=== PATIENT | male | born 1930 ===

== ENCOUNTER 2017-02-27 10:47 | Inpatient (IN) ==
--- NOTE | 2017-02-27 12:27 | CT Report ---
CT head/brain wo con Indication: Fall. Laceration scalp. Comparison: CT head 11/07/2016. Technique: CT of the brain was performed without administration of intravenous contrast. The CT examination was performed using one or more of the following dose reduction techniques: Automatic exposure control, adjustment of the mA and kV according to patient size, use of acute or iterative reconstruction techniques. Findings: There is no evidence of acute intracranial hemorrhage, mass, or infarction. Ventricles appear within normal limits. Generalized atrophy and findings compatible with microvascular ischemia appears stable. The basal cisterns are patent. No significant abnormality is demonstrated to involve the posterior fossa or cerebellum. Orbits and globes demonstrate no evidence of significant pathology. The paranasal sinuses are clear. No significant abnormality is demonstrated to involve the mastoid air cells. The calvarium and overlying soft tissues demonstrate no evidence of acute pathology. Impression: 1. No CT evidence of acute intracranial pathology. 02/27/2017 12:24 PM PROCEDURE INTERPRETED AT [facility] DEPARTMENT OF RADIOLOGY Final Report Signed by: Dr. Shane Xiong
[2017-02-27 12:46] LABS: Basophils % 0.2 % (0.0-0.8); Eosinophils % 0.1 % (0.00-10.9); Hematocrit 39.5 VOL% (42.0-52.0); Hemoglobin 14.1 GM/DL (14.0-18.0); Immature Granulocytes Absolute 0.09 #; Lymphocytes # 2.6 10*3/uL (1.4-4.0); Lymphocytes % 28.1 % (21.2-54.2); Mean Corpuscular HGB Conc 35.7 GM/DL (32-36); Mean Corpuscular Hemoglobin 33 PG (27-34); Mean Platelet Volume 9.8 FL (9.6-12.0); Monocytes # 0.6 10*3/uL (0.11-0.8); Monocytes % 6.5 % (1.7-12.7); Neutrophils # 5.9 10*3/uL (1.4-7.4); Neutrophils % 64.1 % (38.7-73.9); Platelet Count 255 T/CUMM (130-400); Red Blood Count 4.34 MC/CUMM (3.8-5.5); Red Cell Distribution Width 11.6 % (9.3-17.3); White Blood Count 9.1 T/CUMM (4-12)
--- NOTE | 2017-02-27 13:00 | XRay Report ---
History: Cough. Syncope Date: 02/27/2017 Study: Chest x-ray PA and lateral Comparison exam: July 18, 2016 The cardiac silhouette is not enlarged. There is a moderate-sized hiatal hernia as before. The mediastinal contours are unchanged. The pulmonary vasculature is not engorged. The lungs are slightly hyperexpanded. There is no pleural effusion. There is mild platelike scar or subsegmental atelectasis in the lung bases. There is no acute infiltrate. There is osteopenia and mild to moderate thoracic spondylosis. Impression: The lungs are slightly hyperexpanded as can be seen with COPD. Scarring in the lung bases. No acute cardiopulmonary process is identified. Hiatal hernia as before PROCEDURE INTERPRETED AT [facility] DEPARTMENT OF RADIOLOGY Final Report Signed by: Dr. Diana Ivory
[2017-02-27 13:20] LABS: Hypochromasia Slight; Lymphocytes 26 % (20-55); Platelet Estimate Adequate; Segmented Neutrophils 72 % (50-85); Total Cells Counted 100
[2017-02-27 13:25] LABS: Blood Urea Nitrogen 37 MG/DL (7-18); CKMB % 4.1 %; Glucose 105 MG/DL (74-106); Osmolality,Calculated 259.5 MOS/KG (273-304); Potassium 5.2 MMOL/L (3.5-5.1); Sodium 125 MMOL/L (136-145); Troponin I Only < 0.015 NG/ML (0.00-0.045)
--- NOTE | 2017-02-27 14:26 | Emergency Department Note ---
Arrival - Arrival Chief Complaint: Fall Stated Complaint: dizzy, fell in hit head. open cut ED Nursing Triage Note: pt to triage via wc with c/o having a fall and hitting head onset 0945, pt states he takes medicine that makes him dizzy, pt is unsure if he had LOC or not. laceration noted to right side of head. wound cleaned and dsg placed in triage. pt is AAO x 3 Mode of Arrival: Wheelchair Source: Patient, Family Time Seen by Provider: 02/27/17 11:24 - History of Present Illness HPI Narrative: 86 y/o white male presents to the ER after a syncopal episode 1 hour prior to arrival. Patient states this morning he went for a jog and when he got home he sat down to read. After reading for a little while he stood up and walked down the piña. While walking patient became dizzy and blacked out hitting his head on a piece of furniture. Laceration present to posterior scalp. Patient denies chest pain, dyspnea, or headache. Past medical history significant for HTN. PCP: Dr. Monroe. Onset (ago): hour(s) (1) Consistency: constant Allergies/Adverse Reactions: Allergies Allergy/AdvReac Type Severity Reaction Status Date / Time No Known Allergies Allergy Verified 02/27/17 11:14 Home Medications: Home Medications Medication Instructions Recorded Confirmed Type Amlodipine Besylate [Amlodipine 5 mg PO DAILY 02/27/17 History Besylate] Lisinopril/Hydrochlorothiazide 1 each PO DAILY 02/27/17 History [Lisinopril-Hctz 10-12.5 mg Tab] Omeprazole [Omeprazole] 20 mg PO DAILY 02/27/17 History Tizanidine HCl [Tizanidine HCl] 2 mg PO Q6H PRN 02/27/17 History Review of System - Review of System 12 point system: reviewed and no additional remarkable complaints except as stated - Review of System Skin: Present: other (laceration to scalp ) Neurological: Present: other (syncope ) Medical,Surgical,& Family Hx - Medical History Cardio: History of: Hypertension Genitourinary: History of: Prostate Problems - Social History Smoking Status: Never smoker Frequency of Alcohol Use: None Type of Drug Use: None Exam Vital Signs: Vital Signs Temperature 97.8 F 02/27/17 11:21 Pulse Rate 54 L 02/27/17 14:06 Respiratory Rate 20 02/27/17 14:06 Blood Pressure 165/79 02/27/17 14:06 O2 Sat by Pulse Oximetry 98 02/27/17 14:06 - General General appearance: alert, in no apparent distress - ENT ENT exam: Present: normal exam, normal oropharynx, mucous membranes moist - Chest Chest inspection: Present: normal inspection - Respiratory Respiratory exam: Present: normal lung sounds bilaterally - Cardiovascular Cardiovascular exam: Present: regular rate, normal rhythm, normal heart sounds - Abdominal Exam Abdominal exam: Present: soft, normal bowel sounds. Absent: tenderness - Extremities Exam Extremities exam: Present: normal inspection, full ROM - Back Exam Back exam: Present: normal inspection. Absent: vertebral tenderness (no cervicle, throacic, or lumbar vertebral TTP ) - Neurological Exam Neurological exam: Present: alert, oriented X3, CN II-XII intact, normal gait - Psychiatric Psychiatric exam: Present: normal affect, normal mood - Skin Skin exam: Present: warm, dry, other (3 cm laceration to right posterior scalp; slow grade venous oozing. ) Course - Consultations Consultation #1: Hospitalist Time: 14:25 (Will admit to Hospitalist ) Procedures - Laceration Laceration 1 Site: scalp Side (If applicable): right Size (cm): 3 Description: linear Depth: simple, single layer Local Anesthetic: lidocaine 1%, with epi Amount of Anesthesia Used (mL): 2 Pre-repair: wound explored, irrigated extensively, deep structures intact Size: other (ab ) Number of sutures: 5 Technique: simple, interrupted Results - Labs CBC & BMP: 02/27/17 12:32 02/27/17 12:32 Lab Results: I have reviewed the patients labs - Diagnostic Findings Procedure: Chest x-ray: image reviewed by me, report reviewed by me (no acute abnormality ), CT: image reviewed by me, report reviewed by me (Head: no acute abnormality ) Disposition Clinical Impression: Syncope, Laceration, Hyponatremia, Hyperkalemia Case discussed with: patient Disposition: Disch To Home/Self Care Condition: Stable
--- NOTE | 2017-02-27 15:00 | EKG Report ---
Stationary ECG Study [facility] Test Date: 02/27/2017 12:54:15 PM Pat Name: VALDEZ YOUNGBLOOD Department: Room: Gender: M Sound Assistant: : [id number] Requested by: Marry Shepard Order Number: [id number] Reading MD: MINAL SANTANA Intervals [place] Rate: 50 P: 19 NH: 189 QRS: -52 QRSD: 83 T: -2 QT: 456 QTc: 428 Interpretive Statements SINUS BRADYCARDIA MODERATE VOLTAGE CRITERIA FOR LVH, CONSIDER NORMAL VARIANT INFERIOR MYOCARDIAL INFARCTION, OF INDETERMINATE AGE Electronically Signed On 03-03-17 18:26:42 CDT by MINAL SANTANA [email or web address]
--- NOTE | 2017-02-27 15:22 | Hospitalist History & Physical ---
<Maryann Wilkins - Last Filed: 02/27/17 16:44> Assessment and Plan (1) Syncope Status: Acute Assessment and plan: Admit as inpatient observation. Monitored bed. Serial cardiac enzymes. Carotid dopplers/echo. consult cardiology to evaluate. Current Visit: Yes (2) Hyperkalemia Status: Acute Assessment and plan: One time dose of Kayexalate. Recheck potassium in am. Current Visit: Yes (3) Hyponatremia Status: Acute Assessment and plan: Na 125. Will start patient on NS infusion at 75 ml/hr. Recheck BMP in am. Current Visit: Yes (4) Laceration Status: Acute Assessment and plan: Pt. was stapled in ED. Current Visit: Yes (5) Bradycardia Status: Acute Assessment and plan: Pt. will be monitored. Hold heart rate lowering agents. Some concern for possible tachybrady syndrome. Will monitor. Current Visit: Yes History of Present Illness Chief complaint: syncopal episode History of present illness: Mr. Qureshi is a 86 year old white male with a history of htn and enlarged prostate that presents to the ED for further evaluation after a syncopal episode and fall today. Pt's is present at the bedside and provides some of the history. Pt. states that he runs 3miles daily.After his run, he returned home and sat on the couch. While sitting down, he began to have some abdominal cramps. Pt. noted this was not unusual as he takes miralax daily for bowel movements. He got up from the couch, took two steps, and became dizzy. He continued down the piña to the bathroom, became increasingly dizzier and then "blacked out". Pt. reports feeling nauseous before he fell. He stated that when he fell, he didn't have an vision changes, tinnitus, chest pain, or shortness of breath. Pt. denies loss of consciousness but he couldnt remember how he struck his head. Pt. reports only seeing blood on the floor and wall and noticing scrapes to his skin. Pt. states that he has fallen frequently over the past several months. Pt. also reports issues with dizziness. He states that he has had changes made to blood pressure meds lately and that he is scheduled to see Dr. Montes in [place]. Pt also reports that while running he notices his heart climbs to 160 (per smart watch) and drops quickly to the 50s. After the incident today, patient reported to the ED where laceration was cleaned and ab were placed. A workup was completed in the ED and he was noted to be bradycardiac. BMP revealed NA of 125, K of 5.2, and elevated bun/creatinine. Pt' s case has been discussed with Dr. Sharma and REVA Kramer in fast track. Pt. will be admitted to the hospital for further eval. Pt. will be placed in inpatient observation overnight. Cardiology has been consulted to see. Home Medications Medication Instructions Recorded Confirmed Type Acetaminophen [Acetaminophen ER 650 mg PO BID 02/27/17 02/27/17 History Tab] Amlodipine Besylate [Amlodipine 5 mg PO BEDTIME 02/27/17 02/27/17 History Besylate] Folic Acid Tab 1 tablet PO DAILY 02/27/17 02/27/17 History Lisinopril/Hydrochlorothiazide 1 each PO DAILY 02/27/17 02/27/17 History [Lisinopril-Hctz 10-12.5 mg Tab] Multivitamin (Centrum) [Centrum 1 tablet PO DAILY 02/27/17 02/27/17 History Tab] Alma 3 Acid Ethyl Esters [Lovaza] 1 tablet PO DAILY 02/27/17 02/27/17 History Omeprazole [Omeprazole] 20 mg PO DAILY 02/27/17 02/27/17 History Polyethylene Glycol Powder 17 gm PO DAILY 02/27/17 02/27/17 History [Miralax] Tizanidine HCl [Tizanidine HCl] 2 mg PO BID 02/27/17 02/27/17 History Allergies Allergy/AdvReac Type Severity Reaction Status Date / Time No Known Allergies Allergy Verified 02/27/17 11:14 Medical,Surgical,& Family Hx - Medical History Cardio: History of: Hypertension Genitourinary: History of: Prostate Problems - Social History Smoking Status: Never smoker Frequency of Alcohol Use: None Type of Drug Use: None Marital Status: Lives With:: Spouse Functional capacity: independent ambulation - Constitutional Constitutional: Absent: chills, fever(s) - EENT Eyes: Present: loss of vision Ears: Present: decreased hearing. Absent: ear discharge Nose, mouth and throat: Absent: dysphagia, headache(s) - Cardiovascular Cardiovascular: Present: lightheadedness. Absent: chest pain at rest, dyspnea on exertion, edema, palpitations - Respiratory Respiratory: Absent: cough, dyspnea - Gastrointestinal Gastrointestinal: Absent: abdominal pain, nausea, vomiting - Genitourinary Genitourinary: Present: other (patient self caths 3 times a day) - Musculoskeletal Musculoskeletal: Absent: limited range of motion - Neurological Neurological: Present: dizziness, frequent falls. Absent: confusion, numbness - Psychiatric Psychiatric: Absent: anxiety, confusion - Hematologic/Lymphatic Hematologic/Lymphatic: Present: easy bleeding, easy bruising Exam - Constitutional Vitals: Period Temp Pulse Resp BP Sys/[place] Pulse Ox Last 24 Hr 97.8 F-97.8 F 51-55 18-20 129-165/79-83 98-100 General appearance: normal weight, no acute distress - Head Head exam: Present: normal inspection, normocephalic - Eye Eye exam: Present: EOMI Pupils: Present: GRANT - ENT ENT exam: Present: normal exam - Respiratory Respiratory exam: Present: clear to auscultation bilaterally. Absent: wheezes - Cardiovascular Cardiovascular exam: Present: bradycardia - GI/Abdominal GI/Abdominal exam: Present: normal bowel sounds, soft. Absent: tenderness - Extremities Exam Extremities exam: Present: normal capillary refill, full ROM. Absent: edema - Neurological Exam Neurological exam: Present: alert, oriented X3 - Psychiatric Psychiatric exam: Present: normal affect, normal mood - Skin Skin exam: Present: normal color, warm, dry Results - Labs CBC & BMP: 02/27/17 12:32 02/27/17 12:32 Lab Results: I have reviewed the past 24 hour labs <Hillary Sharma - Last Filed: 02/28/17 07:45> History of Present Illness History of present illness: Mr. Qureshi is a 86 year old male who presents with syncope. Patient was seen, examined and discussed with the [employer]. I agree with the current line of management. Exam - Constitutional Vitals: Period Temp Pulse Resp BP Sys/[place] Pulse Ox Last 24 Hr 97.1 F-97.8 F 51-67 15-24 128-191/75-93 94-100 Results - Labs CBC & BMP: 02/28/17 06:33 02/27/17 12:32
[2017-02-27] MEDS ORDERED: ACETAMINOPHEN 325 MG TABLET PO PRN (15:58)
[2017-02-27] MEDS ORDERED: SODIUM POLYSTYRENE SULFATE 15 GM/60 ML BOTTLE PO STA (15:58)
[2017-02-27] MEDS ORDERED: ONDANSETRON 4 MG/2 ML VIAL IV PRN (15:58)
[2017-02-27] MEDS: SODIUM CHLORIDE 0.9% 1,000 ML IV SCH (17:25)
--- NOTE | 2017-02-27 17:26 | Ultrasound Report ---
Exam:US carotid duplex BI Date:02/27/2017 3:58 PM Indication: Syncope Technique:Grayscale color flow analysis and spectral analysis imaging was performed with image stored and captured. Findings: Echogenic plaque is demonstrated within the right carotid artery bulb and proximal right cervical segment ICA. Antegrade flow is noted bilaterally within the vertebral arteries. Right Side Flow velocities centimeters per second Common carotid artery:81.0 Proximal ICA:147.1 Distal ICA:92.1 External carotid artery:101.3 Vertebral artery:61.6 ICA/CCA ratio:1.8 Left SIde Flow velocities centimeters per second Common carotid artery 79.3 Proximal ICA:51.8 Distal ICA:85.1 External carotid artery:49.5 Vertebral artery:68.0 ICA/CCA ratio:0.7 Impression: 1. 50-69% stenosis involving the right cervical segment ICA is estimated. Today studies were performed utilizing indirect NASCET criteria 02/27/2017 5:12 PM PROCEDURE INTERPRETED AT [facility] DEPARTMENT OF RADIOLOGY Final Report Signed by: Dr. Shane Xiong
[2017-02-27 17:47] LABS: Apearance,Urine CLEAR (Clear); Bilirubin,Urine Negative (Negative); Blood, Urine Negative (Negative); Glucose,Urine (UA) Negative (Negative); Ketones,Urine 5 mg/dL (Negative); Nitrite,Urine Negative (Negative); Protein,Urine Negative; RBC,Urine 1 /HPF (0-4); Urine Color Yellow (Yellow); Urine Specific Gravity 1.008 (1.001-1.035); Urine Urobilinogen < 2.0 EU/DL (0.2-1.0); WBC,Urine 3 /HPF (0-6)
[2017-02-27 19:22] LABS: CKMB % 3.9 %; Troponin I Only < 0.015 NG/ML (0.00-0.045)
[2017-02-28 07:15] LABS: Basophils % 0.3 % (0.0-0.8); Eosinophils # 0.1 10*3/uL (0.0-0.87); Eosinophils % 0.7 % (0.00-10.9); Hematocrit 34.7 VOL% (42.0-52.0); Hemoglobin 12.5 GM/DL (14.0-18.0); Immature Granulocytes Absolute 0.07 #; Lymphocytes # 2.5 10*3/uL (1.4-4.0); Lymphocytes % 37.1 % (21.2-54.2); Mean Corpuscular Hemoglobin 33 PG (27-34); Mean Corpuscular Volume 90.4 FL (87-102); Monocytes # 0.6 10*3/uL (0.11-0.8); Monocytes % 8.5 % (1.7-12.7); Neutrophils # 3.6 10*3/uL (1.4-7.4); Neutrophils % 52.4 % (38.7-73.9); Platelet Count 208 T/CUMM (130-400); Red Blood Count 3.84 MC/CUMM (3.8-5.5); Red Cell Distribution Width 11.6 % (9.3-17.3); White Blood Count 6.8 T/CUMM (4-12)
[2017-02-28 07:48] LABS: Free T4 (Free Thyroxine) 1.22 NG/DL (0.76-1.46); Troponin I Only < 0.015 NG/ML (0.00-0.045)
[2017-02-28 07:58] LABS: Calcium 8.6 MG/DL (8.5-10.1); Magnesium 1.9 MG/DL (1.8-2.4); Osmolality,Calculated 269.5 MOS/KG (273-304); Risk Ratio 2.07; Thyroid Stimulating Hormone 1.11 uIU/ml (0.358-3.74)
[2017-02-28 08:04] LABS: Band Neutrophils 1 % (0-10); Eosinophils 1 % (0-10); Hypochromasia 1+; Lymphocytes 30 % (20-55); Segmented Neutrophils 57 % (50-85); Total Cells Counted 100
[2017-02-28 08:05] LABS: Platelet Estimate Normal
[2017-02-28] MEDS: PANTOPRAZOLE 40 MG TABLET PO SCH (08:12)
[2017-02-28] MEDS: amLODIPine 5 MG TABLET PO SCH (10:47)
[2017-02-28] MEDS: SODIUM CHLORIDE 0.9% 1,000 ML IV SCH (10:47)
[2017-02-28] MEDS: ASPIRIN EC 81 MG TABLET PO SCH (10:47)
--- NOTE | 2017-02-28 14:13 | Hospitalist Progress Note ---
Assessment and Plan (1) Syncope Status: Acute Assessment and plan: resulting to a fall.EKG showed sinus bradycardia with heart rate of 50. CT of the head showed no evidence of acute intracranial pathology. Chest x-ray identified no acute cardiopulmonary process. Carotid Doppler showed 50-69% stenosis involving the right internal carotid artery. Plan Follow [facility]ho Follow cardiology and vascular's consults Current Visit: Yes (2) Laceration Status: Acute Assessment and plan: of the right scalp due to a fall. Pt. was stapled in ED. Current Visit: Yes (3) Hyponatremia Status: Acute Assessment and plan: Slowly improving on IVF Current Visit: Yes (4) Hyperkalemia Status: Acute Assessment and plan: resolved Current Visit: Yes (5) Acute renal insufficiency Status: Acute Assessment and plan: Improving with IVF Current Visit: Yes (6) Bradycardia Status: Acute Assessment and plan: cardiology is evaluating. TSH is normal Current Visit: Yes (7) Carotid artery disease Status: Acute Assessment and plan: Carotid doppler showed 50-69% stenosis involving the right cervical segment ICA is estimated Plan CT angio of head and neck Vascular to see Continue with ASA Current Visit: Yes Hospitalist: Subjective Interval history: Patient was sitting up on a chair. He states he feels pretty good.Carotid doppler showed 50-69% stenosis involving the right cervical segment ICA is estimated.Patient has had a CT angiogram of head and neck today. We are awaiting Vascular consult. Exam - Constitutional Vitals: Period Temp Pulse Resp BP Sys/[place] Pulse Ox Last 24 Hr 97.1 F-97.9 F 52-67 14-24 128-191/75-93 94-99 General appearance: no acute distress, other (laceration and bruises on the right scalp, knee) - Respiratory Respiratory exam: Present: clear to auscultation bilaterally - Cardiovascular Cardiovascular exam: Present: regular rate and rhythm - GI/Abdominal GI/Abdominal exam: Present: normal bowel sounds - Extremities Exam Extremities exam: Present: normal inspection - Neurological Exam Neurological exam: Present: alert, oriented X3 Results - Labs CBC & BMP: 02/28/17 06:33 02/28/17 06:33 Lab Results: I have reviewed the past 24 hour labs
--- NOTE | 2017-02-28 14:20 | ECHO Report ---
Fredy Qureshi Exam Date: 02/28/2017 08:52 Referring Physician: Technologist: Mar Talamantes RDCS Age: 86 Ht (in): 69 Wt (lb): 135 Gender: M Exam Location: [facility] Echo Indications: Syncope and collapse, Dizziness and giddiness, Essential (primary) hypertension, Bradycardia, unspecified, Hyperkalemia, Hyponatremia, Frequent falls BP: 167 / 87 HR: 56 Rhythm: Sinus Technical Quality: Good IMPRESSIONS Normal left ventricular cavity size. Normal left ventricular wall thickness. Left ventricular ejection fraction is estimated at 55 %. The right ventricle is normal in size and function. The right atrium is normal in size. The left atrium is normal in size. Mildly thickened mitral valve. Mild mitral valve regurgitation. Aortic valve sclerosis without stenosis or regurgitation. Morphologically normal tricuspid valve. Trace to mild tricuspid valve regurgitation. Tricuspid regurgitation velocities suggest a PAP of 42 mmHg. Morphologically normal pulmonic valve. Mild pulmonary valve regurgitation. Normal pericardium without effusion. Normal ascending aorta dimension. MEASUREMENTS (Male / Female) Normal Values 2D ECHO LV Diastolic Diameter PLAX 5.2 cm 4.2 - 5.9 / 3.9 - 5.3 cm LV Systolic Diameter PLAX 2.9 cm LV Fractional Shortening PLAX 44.7 % IVS Diastolic Thickness 0.9 cm 0.6 - 1.0 / 0.6 - 0.9 cm LVPW Diastolic Thickness 0.9 cm 0.6 - 1.0 / 0.6 - 0.9 cm RV Internal Dim ED PLAX 3.5 cm Aortic Root Diameter 3.7 cm LA Systolic Diameter LX 3.8 cm 3.0 - 4.0 / 2.7 - 3.8 cm DOPPLER TR Peak Velocity 284.0 cm/s TR Peak Gradient 32.3 mmHg FINDINGS Left Ventricle Normal left ventricular cavity size. Normal left ventricular wall thickness. Left ventricular ejection fraction is estimated at 55 %. Right Ventricle The right ventricle is normal in size and function. Right Atrium The right atrium is normal in size. Left Atrium The left atrium is normal in size. Mitral Valve Mildly thickened mitral valve. Mild mitral valve regurgitation. Aortic Valve Aortic valve sclerosis without stenosis or regurgitation. Tricuspid Valve Morphologically normal tricuspid valve. Trace to mild tricuspid valve regurgitation. Tricuspid regurgitation velocities suggest a PAP of 42 mmHg. Pulmonic Valve Morphologically normal pulmonic valve. Mild pulmonary valve regurgitation. Pericardium Normal pericardium without effusion. Aorta Normal ascending aorta dimension. Dharmesh Montes MD (Electronically Signed) Final Date: 28 February 2017 14:19
--- NOTE | 2017-02-28 14:26 | CT Report ---
CT angio neck, CT angio head Indication: Carotid stenosis. CT ANGIOGRAM CAROTID ARTERIES DLP: 151 mGy*cm. One or more of the following dose reduction techniques was used: Automated exposure control, adjustment of the mA and/or kV according the patient size, or use of iterative reconstruction techniques. Technique: Axial thin cuts CT images were obtained from the aortic arch through the skull base during the arterial phase of contrast injection. 3-D vascular MIPs reconstructions and multiplanar reformats were evaluated. Omnipaque 350, 80 cc given. Comparison: None. Findings: Severity of stenosis based on NASCET criteria. Reference downstream ICA diameters are 6.1 mm on the right and 5.60 m on the left. Complex calcified atheromatous disease is present at both carotid bifurcations. On the right, the carotid lumen is narrowed to a diameter of 2.8 mm, which calculates to 55% diameter stenosis. On the left, the plaque present does not cause measurable stenosis of the left ICA origin. Both common carotid arteries are widely patent. Vertebral arteries are bilaterally patent and the right side is slightly dominant of the left. Calcified atheromatous disease, elongation and tortuosity thoracic aorta noted. No aneurysm or dissection shown. Right vessel origins are normal anatomic configuration without ostial stenosis. No superior mediastinal or cervical chain lymphadenopathy identified. The epiglottis is thin and midline. Vocal cords are symmetric. Airways widely patent. The trachea at the thoracic inlet has a "saber-sheath" appearance. Pulmonary apices are clear. Degenerative changes cervicothoracic spine noted. Visualized sinuses are clear. Left mastoid air cells are not aerated. Impression: 1. 55% diameter stenosis right ICA origin secondary to heterogeneous calcified plaque deposition. No measurable stenosis on the left despite the presence of plaque. 2. Widely patent bilateral vertebral arteries. 3. "Saber-sheath" appearing trachea at thoracic inlet. No compressing mass identified. CT ANGIOGRAM [place] DLP: 1934 mGy*cm. One or more of the following dose reduction techniques was used: Automated exposure control, adjustment of the mA and/or kV according the patient size, or use of iterative reconstruction techniques. Technique: Axial thin cut CT images were obtained from the skull base to the vertex during arterial phase of contrast injection. 3-D vascular MIPs reconstructions and multiplanar reformats were evaluated. Omnipaque 350, 80 cc given. Comparison: None. Findings: Calcified atheromatous disease of both distal internal carotid arteries noted. No aneurysmal change or critical stenosis identified on either side. MCA and MEENA vascular territories bilaterally symmetric and appear grossly unremarkable. Both vertebral arteries terminate in the basilar system. Basilar artery is normal in size without stenosis. No intracranial aneurysmal disease shown. Dural venous drainage system and deep cerebral veins are widely patent. Impression: 1. Calcified atheromatous disease of both ICA termini. No critical stenosis identified. 2. No intracranial aneurysmal disease. PROCEDURE INTERPRETED AT [facility] DEPARTMENT OF RADIOLOGY Final Report Signed by: Olvin Geronimo M.D.
--- NOTE | 2017-02-28 14:55 | Vascular Surgery Consult Note ---
History of Present Illness Chief complaint: carotid stenosis History of present illness: Mr. Qureshi is a 86 year old male Estimate there is a remarkably healthy-appearing 86-year-old man who was admitted with a syncopal episode resulting in a fall and minor scalp laceration. During his evaluation carotid ultrasound has been done and suggested modest stenosis of the right internal carotid artery noted on the left and a CT angiogram is now been done. I reviewed it has has a radiologist and he has a moderate stenosis with a densely calcified plaque at the right carotid bifurcation and no significant stenosis of the left carotid bifurcation. He very specifically denies any history suggesting lateralizing TIAs or amaurosis. At this point time Mr. 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 Reasonable antiplatelet therapy would be appropriate for him and routine follow-up with ultrasound would also be a reasonable approach but at age 86 and active it is unlikely we will see any significant changes in the near future. Home Medications Medication Instructions Recorded Confirmed Type Acetaminophen [Acetaminophen ER 650 mg PO BID 02/27/17 02/27/17 History Tab] Amlodipine Besylate [Amlodipine 5 mg PO BEDTIME 02/27/17 02/27/17 History Besylate] Folic Acid Tab 1 tablet PO DAILY 02/27/17 02/27/17 History Lisinopril/Hydrochlorothiazide 1 each PO DAILY 02/27/17 02/27/17 History [Lisinopril-Hctz 10-12.5 mg Tab] Multivitamin (Centrum) [Centrum 1 tablet PO DAILY 02/27/17 02/27/17 History Tab] [place] 3 Acid Ethyl Esters [Lovaza] 1 tablet PO DAILY 02/27/17 02/27/17 History Omeprazole [Omeprazole] 20 mg PO DAILY 02/27/17 02/27/17 History Polyethylene Glycol Powder 17 gm PO DAILY 02/27/17 02/27/17 History [Miralax] Tizanidine HCl [Tizanidine HCl] 2 mg PO BID 02/27/17 02/27/17 History Allergies Allergy/AdvReac Type Severity Reaction Status Date / Time No Known Allergies Allergy Verified 02/27/17 11:14 Medical,Surgical,& Family Hx - Medical History Cardio: History of: Hypertension HEENT: History of: Ear Problem (hearing aids) Genitourinary: History of: Bladder Problem (bal[place]), Prostate Problems Gastrointestinal: History of: GERD Musculoskeletal: History of: Back/Neck Problems - Social History Smoking Status: Never smoker Frequency of Alcohol Use: None Type of Drug Use: None Exam - Constitutional Vitals: Period Temp Pulse Resp BP Sys/[place] Pulse Ox Last 24 Hr 97.1 F-97.9 F 52-67 14-24 128-191/75-93 94-99 Results - Labs CBC & BMP: 02/28/17 06:33 02/28/17 06:33
[2017-03-01] MEDS: SODIUM CHLORIDE 0.9% 1,000 ML IV SCH ×2 (06:53→09:16)
[2017-03-01] MEDS: PANTOPRAZOLE 40 MG TABLET PO SCH (08:21)
[2017-03-01] MEDS: amLODIPine 5 MG TABLET PO SCH (08:21)
[2017-03-01] MEDS: ASPIRIN EC 81 MG TABLET PO SCH (08:21)
--- NOTE | 2017-03-01 08:22 | Cardiology Consult Note ---
Gume Purdy April RN, am scribing for, and in the presence of, Dharmesh Montes MD 08:22. Assessment and Plan - Time spent with patient Time spent with patient: Greater than 30 minutes (Due to assessment, planning, documentation, medication review) (1) Bradycardia Status: Acute Current Visit: Yes (2) Hyperkalemia Status: Acute Assessment and plan: He was given fluids last night and in today, this has improved. Current Visit: Yes (3) Hyponatremia Status: Acute Assessment and plan: He was given fluids last night and today, this is improved. Current Visit: Yes (4) Laceration Status: Acute Assessment and plan: This was stapled in the emergency department. Current Visit: Yes (5) Syncope Status: Acute Current Visit: Yes History of Present Illness - Data of Consult Patient: new to practice Consult date: 02/27/17 Requesting Physician: Hillary Sharma Primary care physician: Vidhi Monroe - Consult Narrative Reason for consult: Syncope History of present illness: Clinical Laboratory Aide: New to Dr. Montes Mr. 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 He denies ever having had a heart catheterization done. He states his primary doctor has ordered stress testing in the past (greater than 10 years) and as far as he knows this is all been negative. Medical history includes hypertension, prostate problems, arthritis, and bladder cancer. Surgical history includes bilateral cataracts, left foot, tonsillectomy, and bladder surgery. He does not currently smoke, states he quit about 45 years ago. Mr. Qureshi states he is very active, jogging 3 miles nearly every day. He was in his normal state of health until yesterday morning. After he returned from jogging he sat down to eat and felt fine. Upon standing he felt fine, walk down the piña about 20 feet and suddenly got nauseous and dizzy and fell. He thinks he was blacked out for a few seconds. He denies any vision changes, chest pain, shortness of breath with this episode. He had a laceration of the right side of his head and scrapes to his right forearm, right knee, and right pittman. Laceration of the head was stapled in the emergency department. EKG showed sinus bradycardia with heart rate of 50. CT of the head showed no evidence of acute intracranial pathology. Chest x-ray identified no acute cardiopulmonary process. Carotid Doppler showed 50-69% stenosis involving the right internal carotid artery. Dr. Dial has been consulted regarding this. His amlodipine has been continued, but his lisinopril HCTZ is on hold at this time. Blood pressure this morning is elevated at 175/84. On admission his sodium was low at 125, potassium elevated at 5.2, and creatinine elevated at 1.4. He has been given fluids and these numbers have improved. This morning sodium is 132, potassium is 4.0, and creatinine is 1.30. Troponin has been negative 3. CK-MB was elevated at 6.5 on admission, this has trended down and this morning it is within normal range. He does report he has had several falls recently, but none of them were associated with syncope or dizziness. Of note he reports he was traveling several weeks ago and did have significant swelling of his lower extremities. This improved after returning home. An echocardiogram has been ordered today. He denies any chest pain, shortness of breath, or dizziness since admission. He denies any further episodes of syncope or near syncope. This patient presents with what sounds like an episode of orthostasis after fairly intense physical exertion and having taken his blood pressure medications. He is hyponatremic and I think a reasonable approach would be to stop his HCTZ which we will do today. He is not having any symptoms that would suggest coronary insufficiency and his resting heart rate is in the 50s related to conditioning. I agree with carotid evaluation is planned and we will follow. I have discussed in detail the particulars of this case and I have examined the patient and reviewed the patient's chart both current and old. I was directly involved in the patient's evaluation and management and I completely agree with Nia Dunaway RN regarding this patient's evaluation and treatment plan. CC: Hillary Sharma MD - Home Medications and Allergies Home Medications: Home Medications Medication Instructions Recorded Confirmed Type Acetaminophen [Acetaminophen ER 650 mg PO BID 02/27/17 02/27/17 History Tab] Amlodipine Besylate [Amlodipine 5 mg PO BEDTIME 02/27/17 02/27/17 History Besylate] Folic Acid Tab 1 tablet PO DAILY 02/27/17 02/27/17 History Lisinopril/Hydrochlorothiazide 1 each PO DAILY 02/27/17 02/27/17 History [Lisinopril-Hctz 10-12.5 mg Tab] Multivitamin (Centrum) [Centrum 1 tablet PO DAILY 02/27/17 02/27/17 History Tab] [place] 3 Acid Ethyl Esters [Lovaza] 1 tablet PO DAILY 02/27/17 02/27/17 History Omeprazole [Omeprazole] 20 mg PO DAILY 02/27/17 02/27/17 History Polyethylene Glycol Powder 17 gm PO DAILY 02/27/17 02/27/17 History [Miralax] Tizanidine HCl [Tizanidine HCl] 2 mg PO BID 02/27/17 02/27/17 History Allergies/Adverse Reactions: Allergies Allergy/AdvReac Type Severity Reaction Status Date / Time No Known Allergies Allergy Verified 02/27/17 11:14 - Constitutional Constitutional: Present: as per HPI - EENT Eyes: Present: requires corrective lense. Absent: blurry vision Ears: Present: decreased hearing. Absent: ear pain, tinnitus Nose, mouth and throat: Present: neck pain, sore throat. Absent: dysphagia, epistaxis, headache(s), hoarseness - Cardiovascular Cardiovascular: Present: lightheadedness. Absent: chest pain at rest, chest pain with activity, diaphoresis, dyspnea, dyspnea on exertion, edema, radiating jaw, neck or arm pain, orthopnea, palpitations - Respiratory Respiratory: Present: cough. Absent: dyspnea, hemoptysis, dyspnea on exertion, wheezing - Gastrointestinal Gastrointestinal: Present: constipation, nausea. Absent: abdominal pain, diarrhea, hematemesis, hematochezia, melena, vomiting - Genitourinary Genitourinary: Present: difficulty urinating. Absent: dysuria, hematuria - Musculoskeletal Musculoskeletal: Present: back pain, limited range of motion, muscle weakness - Neurological Neurological: Present: dizziness, frequent falls, syncope. Absent: confusion, headache(s) - Psychiatric Psychiatric: Absent: anxiety, depression - Endocrine Endocrine: Absent: fatigue - Hematologic/Lymphatic Hematologic/Lymphatic: Present: easy bruising. Absent: easy bleeding Medical,Surgical,& Family Hx - Medical History Cardio: History of: Hypertension HEENT: History of: Ear Problem (hearing aids) Genitourinary: History of: Bladder Problem ([place]), Prostate Problems Gastrointestinal: History of: GERD Musculoskeletal: History of: Back/Neck Problems - Surgical History HEENT Surgeries: Surgical HX of: Eye Surgery (Bilateral cataracts), Tonsilectomy & Adenoidectomy Orthopedic Surgeries: Surgical HX of;: Orthopedic Surgery (Left foot) Additional Surgical History: Bladder surgery - Social History Smoking Status: Former smoker (Quit 45 years ago) Have you smoked in the last 12 months: No Frequency of Alcohol Use: Frequently Type of Drug Use: None Marital Status: Lives With:: Spouse Functional capacity: independent ambulation Physical Examination Vital Signs Temp Pulse Resp BP Pulse Ox 97.8 F 51 L 18 129/82 99 02/27/17 11:04 02/27/17 11:04 02/27/17 11:04 02/27/17 11:04 02/27/17 11:04 General: Present: Appears Well, No Apparent Distress HEENT: Present: PERRL, Mucus Membranes Moist Neck: Present: Supple Neck, Midline Trachea, No Bruit Cardiac: Present: Reg Rate and Rhythm, No Murmur, Bradycardia Lungs: Present: Normal Breath Sounds, No Wheeze, Rales, Rhonchi Neuro: Absent: Resting Tremor, Essential Tremor Abdomen: Present: Soft, Active Bowel Sounds, Non-Tender. Absent: Distended Skin: Present: Other (Laceration to his head, scrapes to his right forearm, right knee, and right she). Absent: Rash Musculoskeletal: Present: Decreased Range of Motion, Pain in Joint Extremities: Present: No Edema, Normal Upper Extr. Pulses, Normal Lower Extr. Pulses Result/EKG - Labs CBC & BMP: 02/28/17 06:33 02/28/17 06:33 Lab Results: I have reviewed the past 24 hour labs Labs: Laboratory Results - last 24 hr 02/27/17 02/27/17 02/27/17 12:32 12:32 18:46 WBC 9.1 RBC 4.34 Hgb 14.1 Hct 39.5 L MCV 91.0 MCH 33 MCHC 35.7 RDW 11.6 Plt Count 255 MPV 9.8 Neut % (Auto) 64.1 Lymph % (Auto) 28.1 [place] % (Auto) 6.5 Eos % (Auto) 0.1 Baso % (Auto) 0.2 Neut # (Auto) 5.9 Lymph # (Auto) 2.6 [place] # (Auto) 0.6 Eos # (Auto) 0.0 Baso # (Auto) 0.0 Total Counted 100 Immature Gran % 1.0 Nucleated RBC % 0.0 Immature Gran # 0.09 Segmented Neutrophils 72 Band Neutrophils Lymphocytes 26 Monocytes 1 L Eosinophils Basophils 1.0 H Nucleated RBCs # 0.00 Platelet Estimate Adequate Immature Plt Fraction 0.0 Hypochromasia Slight Sodium 125 L Potassium 5.2 H Chloride 91 L Carbon Dioxide 25 Anion Gap 14.2 BUN 37 H Creatinine 1.40 H GFR Calculation 46 BUN/Creatinine Ratio 26.00 H Glucose 105 Hemoglobin A1c Calculated Osmolality 259.5 L Calcium 9.0 Magnesium Total Creatine Kinase 160 CK-MB (CK-2) 6.5 H CK and CKMB Interp 4.1 Troponin I < 0.015 B-Natriuretic Peptide 83 Triglycerides Cholesterol LDL Cholesterol VLDL Cholesterol HDL Cholesterol Heart Disease Risk Ratio Free T4 TSH 3rd Generation Urine Color Urine Appearance Urine pH Ur Specific Dewitt Urine Protein Urine Glucose (UA) Urine Ketones Urine Blood Urine Nitrate Urine Bilirubin Urine Urobilinogen Urine Leukocytes Urine RBC Urine WBC Ur Culture Indicated? 02/27/17 02/27/17 02/28/17 18:46 Unknown 06:33 WBC 6.8 RBC 3.84 Hgb 12.5 L Hct 34.7 L MCV 90.4 MCH 33 MCHC 36.0 RDW 11.6 Plt Count 208 MPV 11.0 Neut % (Auto) 52.4 Lymph % (Auto) 37.1 [place] % (Auto) 8.5 Eos % (Auto) 0.7 Baso % (Auto) 0.3 Neut # (Auto) 3.6 Lymph # (Auto) 2.5 [place] # (Auto) 0.6 Eos # (Auto) 0.1 Baso # (Auto) 0.0 Total Counted 100 Immature Gran % 1.0 Nucleated RBC % 0.0 Immature Gran # 0.07 Segmented Neutrophils 57 Band Neutrophils 1 Lymphocytes 30 Monocytes 11 Eosinophils 1 Basophils Nucleated RBCs # 0.00 Platelet Estimate Normal Immature Plt Fraction 5.3 Hypochromasia 1+ Sodium Potassium Chloride Carbon Dioxide Anion Gap BUN Creatinine GFR Calculation BUN/Creatinine Ratio Glucose Hemoglobin A1c Calculated Osmolality Calcium Magnesium Total Creatine Kinase 160 CK-MB (CK-2) 6.3 H CK and CKMB Interp 3.9 Troponin I < 0.015 B-Natriuretic Peptide Triglycerides Cholesterol LDL Cholesterol VLDL Cholesterol HDL Cholesterol Heart Disease Risk Ratio Free T4 TSH 3rd Generation Urine Color Yellow Urine Appearance Clear Urine pH 7.0 Ur Specific Dewitt 1.008 Urine Protein Negative Urine Glucose (UA) Negative Urine Ketones 5 Urine Blood Negative Urine Nitrate Negative Urine Bilirubin Negative Urine Urobilinogen < 2.0 H Urine Leukocytes Negative Urine RBC 1 Urine WBC 3 Ur Culture Indicated? Not indicated 02/28/17 02/28/17 02/28/17 06:33 06:33 06:33 WBC RBC Hgb Hct MCV MCH MCHC RDW Plt Count MPV Neut % (Auto) Lymph % (Auto) [place] % (Auto) Eos % (Auto) Baso % (Auto) Neut # (Auto) Lymph # (Auto) [place] # (Auto) Eos # (Auto) Baso # (Auto) Total Counted Immature Gran % Nucleated RBC % Immature Gran # Segmented Neutrophils Band Neutrophils Lymphocytes Monocytes Eosinophils Basophils Nucleated RBCs # Platelet Estimate Immature Plt Fraction Hypochromasia Sodium 132 L Potassium 4.0 Chloride 99 Carbon Dioxide 26 Anion Gap 11.0 BUN 28 H Creatinine 1.30 GFR Calculation 50 BUN/Creatinine Ratio 21.00 H Glucose 90 Hemoglobin A1c 5.3 Calculated Osmolality 269.5 L Calcium 8.6 Magnesium 1.9 Total Creatine Kinase 111 D CK-MB (CK-2) 3.4 CK and CKMB Interp Troponin I < 0.015 B-Natriuretic Peptide Triglycerides 70 Cholesterol 157 LDL Cholesterol 74.0 VLDL Cholesterol 14.0 HDL Cholesterol 76 H Heart Disease Risk Ratio 2.07 Free T4 1.22 TSH 3rd Generation 1.110 Urine Color Urine Appearance Urine pH Ur Specific Dewitt Urine Protein Urine Glucose (UA) Urine Ketones Urine Blood Urine Nitrate Urine Bilirubin Urine Urobilinogen Urine Leukocytes Urine RBC Urine WBC Ur Culture Indicated? - Diagnostic Findings Procedure: Chest x-ray: report reviewed by me - EKG EKG results: interpreted by me EKG shows: bradycardia, sinus rhythm ISimon Wesley, MD, personally performed the services described in this documentation, ascribed by Nia Dunaway RN in my presence, and it is both accurate and complete 822 .
--- NOTE | 2017-03-01 11:29 | Discharge Summary ---
Hospital Course - Hospital Course Hospital Course: Mr. Qureshi is a 86 year old pleasant white male who runs 3miles daily and has a history of HTN and enlarged prostate that presents to the ED with a history of a syncopal episode. Patient was well until the day of presentation at home when he developedsome abdominal cramps, got up while walking on the piña to the bathroom, he became increasingly dizzy and blanked out resulting to a fall and sustaining a laceration on his right scalp and bruises on his right knee. Upon arrival to the ER, he was noted to be bradycardiac.BMP revealed NA of 125, K of 5.2, and elevated bun/creatinine.His laceration was stapled . He was then admitted to a monitored bed.Cardiac enzymes showed a mildly elevated CKMB at its highest at 6.5 with other parameters being normal. EKG showed sinus bradycardia with heart rate of 50. CT of the head showed no evidence of acute intracranial pathology. Chest x-ray identified no acute cardiopulmonary process. Carotid Doppler showed 50-69% stenosis involving the right internal carotid artery.Cardiology saw in consultation, they feel his syncope is most likely due to an episode of orthostasis, they advised to stop HCTZ most especially with his hyponatremia.He received some IVF.CTA of the head and neck showed 55% diameter stenosis right ICA origin secondary to heterogeneous calcified plaque deposition. No measurable stenosis on the left despite the presence of plaque.Widely patent bilateral vertebral arteries."Saber-sheath" appearing trachea at thoracic inlet. No compressing mass identified.Vascular was consulted. 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 They agree with antiplatelet therapy would be appropriate for him and routine follow-up with ultrasound would also be a reasonable approach but at age 86 and active it is unlikely we will see any significant changes in the near future.Echo showed a normal left ventricular cavity size.Normal left ventricular wall thickness. Left ventricular ejection fraction is estimated at 55 %. Patient remained stable throughout his stay on admission, his vitals are stable, his sodium has improved to 132.He will be dcd today on Norvasc 5mg daily and Lisinopril has been increased to 20mg daily since we are stopped the HCTZ. patient to follow with PCP in 1week. - Time spent with patient Time with patient DS: Greater than 30 minutes (Time spent greater than 35mins) Diagnosis - Discharge Diagnosis (1) Syncope Status: Acute (2) Laceration Status: Acute (3) Hyponatremia Status: Acute (4) Hyperkalemia Status: Acute (5) Acute renal insufficiency Status: Acute (6) Bradycardia Status: Acute (7) Carotid artery disease Status: Acute Discharge Plan - Discharge Data Disposition: Disch To Home/Self Care Condition at Discharge: Stable Discharge Diet: advance to your usual diet Activity: resume usual activities as tolerated - Discharge Medications New Lisinopril 20 mg PO DAILY #30 tablet Aspirin EC Tab 81 mg PO DAILY #30 tablet HYDROcodone/ACETAMIN 5-325 [[place] 5-325] 1 tablet PO Q4H PRN #20 tablet PRN Reason: Pain Mild (1-3) Continue Omeprazole 20 mg PO DAILY Amlodipine Besylate 5 mg PO BEDTIME Tizanidine HCl 2 mg PO BID [place] 3 Acid Ethyl Esters [Lovaza] 1 tablet PO DAILY Acetaminophen [Acetaminophen ER Tab] 650 mg PO BID Multivitamin (Centrum) [Centrum Tab] 1 tablet PO DAILY Folic Acid Tab 1 tablet PO DAILY Polyethylene Glycol Powder [Miralax] 17 gm PO DAILY Discontinued Lisinopril/Hydrochlorothiazide [Lisinopril-Hctz 10-12.5 mg Tab] 1 each PO DAILY - Follow Up or Referral - Forms/Instructions Additional Discharge Instructions: Follow up with PCP in 1week. Follow with Vascular and Cardiology as scheduled Exam - Constitutional Vitals: Period Temp Pulse Resp BP Sys/[place] Pulse Ox Last 24 Hr 97 F-98.4 F 52-69 12-22 140-178/72-94 93-98 General appearance: no acute distress - Head Head exam: Present: normal inspection - Respiratory Respiratory exam: Present: clear to auscultation bilaterally - Cardiovascular Cardiovascular exam: Present: regular rate and rhythm - GI/Abdominal GI/Abdominal exam: Present: normal bowel sounds - Extremities Exam Extremities exam: Present: normal inspection - Neurological Exam Neurological exam: Present: alert, oriented X3 DS: Provider Date of admission: 02/27/17 14:44 Primary care physician: . No PCP Attending physician on admission: Hillary Sharma MD Consults: 02/27/17 15:58 Consult to Physician [CONS] Routine Comment: syncopal episode Consulting Provider: Brandee Desir Person Notified: DR. DESIR Date Notified: 02/27/17 Time Notified: 17:22 02/28/17 09:25 Consult to Physician [CONS] Routine Comment: Consulting Provider: Herbie Dial Person Notified: brandee Date Notified: 02/28/17 Discharging clinician: Hillary Sharma MD
[2017-03-01 12:45] VITALS: BP 183/93
== END 2017-03-01 13:42 | disposition home or self-care (01) | DRG 309 ==
LOC: N.ED 10:47 → N.EDINP 14:44 → N.2E 15:38
PROVIDERS: ADMIT Internal Medicine; ATTEND Internal Medicine